=== PATIENT | male | born 1980 | race African-American/Black ===

== ENCOUNTER 2016-07-13 09:12 | Outpatient (RCR) | payer MEDICARE, OTHER ==
[~2016-07-13 09:12] MED LIST: ACETAMINOPHEN325 M1 ORAL; AMBIEN5 MG ORAL; ASPIRIN EC81 MG ORAL; BRIMONIDINE TART5 ML LEFT EYE; COSOPT PF EYE1 EAC1 OP; COZAAR50 MG ORAL; HUMALOG100 UNIT/3 SUBQ; LANTUS SOL100 UNIT/1 SUBQ; MULTI-VITAMIN1 EACH PO; NEPHRO-VITE RX1 EAC1 PO; NORCO 5-325 TA1 EACH ORAL; NORVASC10 MG ORAL; NORVASC2.5 MG ORAL; NOVOLOG100 UNITS1 SUBQ; PHOSLO667 M1 ORAL; RANITIDINE HCL150 MG ORAL; RENVELA0.8 GM ORAL; RENVELA800 MG ORAL; VITAMIN C500 M1 ORAL; XALATAN2.5 ML BOTH EYES; ZOFRAN4 M3 ORAL
== END 2016-08-10 | disposition home or self-care (01) ==
LOC: WCC 09:12
DX: L97.514 Non-pressure chronic ulcer of other part of right foot with necrosis of bone (principal); T86.821 Skin graft (allograft) (autograft) failure; E11.621 Type 2 diabetes mellitus with foot ulcer; E11.42 Type 2 diabetes mellitus with diabetic polyneuropathy; E11.628 Type 2 diabetes mellitus with other skin complications; N18.6 End stage renal disease; L84 Corns and callosities; Z79.4 Long term (current) use of insulin; I10 Essential (primary) hypertension; Z99.2 Dependence on renal dialysis
CPT/HCPCS: 82962; G0277